=== PATIENT | male | born 2000 | race Hispanic/Latino ===

== ENCOUNTER 2023-11-27 09:46 | Emergency (ER) | payer OTHER, BC ==
[~2023-11-27] VITALS: Ht 180.3 cm; Wt 85.7 kg
[2023-11-27] MEDS ORDERED: IBUP-2077 PO (11:26)
[2023-11-27] MEDS ORDERED: CYCL-309 PO (11:26)
[2023-11-27 12:12] VITALS: BP 130/86; PULSE 70; RESP 14; O2SAT 100
[2023-11-27] MEDS: CYCLOBENZAPRINE HCL 10 MG TABLET PO ONE (12:12)
[2023-11-27] MEDS: ACETAMINOPHEN 500 MG TABLET PO ONE (12:13)
== END 2023-11-27 12:36 | disposition home or self-care (01) ==
LOC: EDH 09:46
DX: S16.1XXA Strain of muscle, fascia and tendon at neck level, initial encounter (principal); S05.11XA Contusion of eyeball and orbital tissues, right eye, initial encounter; V89.2XXA Person injured in unspecified motor-vehicle accident, traffic, initial encounter; Y93.89 Activity, other specified; Y92.89 Other specified places as the place of occurrence of the external cause; Y99.8 Other external cause status
CPT/HCPCS: 70450; 72125

== ENCOUNTER 2025-10-13 20:04 | Emergency (ER) | payer BC, OTHER ==
[~2025-10-13] VITALS: Ht 182.9 cm; Wt 86.2 kg
[~2025-10-13 20:04] MED LIST: CYCL-309 PO; IBUP-2077 PO
--- NOTE | 2025-10-13 20:46 | NUR ---
called in ER lobby. no answer
--- NOTE | 2025-10-13 21:31 | ERN ---
General Chief Complaint: Knee Injury/Swelling Stated Complaint: C/O PAIN TO RIGHT KNEE AFTER FALL Time Seen by MD: 20:13 History of Present Illness Initial Comments 25-year-old male here for evaluation of right knee pain status post fall. Patient states that his dog ran up behind him and hit him from the back making him twist his knee. No pain medications taken prior to arrival. No history of injury to the knee in the past. Allergies: Coded Allergies: No Known Drug Allergies (Unverified Allergy, Unknown, 11/27/23) Home Meds Active Scripts Cyclobenzaprine HCl (Cyclobenzaprine HCl) 10 Mg Tablet, 10 MG PO TID, #30 TAB Prov:JUDY GALE [employer] 11/27/23 Ibuprofen (Ibuprofen 800 mg Tab) 800 Mg Tab, 800 MG PO Q8H PRN for fever or pain, #30 TAB 0 Refills Prov:BALJINDERJUDY Hicks [employer] WORK[employer] 11/27/23 Past Medical History Past Medical History: No Pertinent History Past Surgical History: None Musculoskeletal: (+) joint pain, (+) joint swelling Review of Systems: was completed, & the rest were negative. Physical Exam Physical Exam Dictation GENERAL APPEARANCE NAD, activity normal for age, well developed/ well nourished, no cyanosis, pallor, or diaphoresis. EYES lids/conjunctiva normal. EARS/NOSE/THROAT Mucous membranes moist, nares normal, lips/teeth normal uvula midline without oral pharyngeal erythema, exudate or swelling TMs normal bilaterally. No lymphangitis/lymphedema. HEAD/NECK normocephalic atraumatic, no facial trauma, neck is supple. RESPIRATORY respiratory effort normal, speaks in full sentences, no tripod position, no accessory muscle use. Lungs clear to auscultation without rhonchi, wheezes, rales CARDIAC Regular rate and rhythm, no edema. ABDOMINAL Soft, ND/NT. No evidence of fluid wave. No pulsatile masses on exam, rebound tenderness, [place] sign or pain over Mcburney's point. MUSCLES/EXTREMITIES . Test. Negative anterior drawer test SKIN Warm, pink and dry. No rashes, dermatoses, petechiae or lesions. NEUROLOGICAL Speech is clear and appropriate. Normal level of consciousness. Gait and coordination are normal. 5/5 strength in all extremities. PSYCH Normal mood and affect. Judgement/competence is appropriate MDM 25-year-old male here for evaluation of right knee pain status post fall. Exam consistent with a likely ligamentous injury however negative for anterior drawer posterior drawer test. More than likely has an MCL strain. We will discharge the patient home on meloxicam PRN. Advised to follow up with the PCP for likely physical therapy and/or MRI referral. Patient well-appearing no acute distress vital signs stable. Mild antalgic gait. I reviewed the x-ray myself. No acute fracture. Reviewed x-ray with the patient ED Course Orders Procedure Category Date Status Time Knee 3vws Rt RAD 10/13/25 Taken 20:14 Ketorolac PHA 10/13/25 Complete Tromethamine 15mg/Ml 21:00 Methocarbamol PHA 10/13/25 Complete (Methocarbamol) 21:00 Current Medications Medications (Trade) Dose Ordered Sig/Abner Route PRN Reason Start Time Stop Time Status Last Admin Dose Admin Ketorolac Tromethamine (toRADol) 15 mg ONCE ONCE IM 10/13/25 21:00 10/13/25 21:01 DC 10/13/25 21:37 Methocarbamol (methoCARBamol) 500 mg ONCE ONCE PO 10/13/25 21:00 10/13/25 21:01 DC 10/13/25 21:37 Vital Signs Date Time Temp Pulse Resp B/P (MAP) Pulse Ox O2 Delivery O2 Flow Rate FiO2 10/13/25 21:37 97.9 80 20 120/71 100 Room Air* 0 21 10/13/25 20:06 97.7 80 20 120/71 100 Room Air DX & DISP Disposition: Discharge Departure Impression: Primary Impression: Right knee sprain Condition: Stable Scripts Meloxicam (Meloxicam) 15 Mg Tablet 1 TAB PO DAILY for 7 Days, #7 TAB 0 Refills Prov: WILLOW VILLA MD 10/13/25 Referrals: CYNTHIA BUSTILLOS MD (PCP) WILLOW VILLA MD Oct 13, 2025 21:31
[2025-10-13 21:37] VITALS: BP 120/71; PULSE 80; RESP 20; TEMP 97.9; O2SAT 100
[2025-10-13] MEDS ORDERED: MELO-108 PO (21:40)
--- NOTE | 2025-10-13 22:04 | HMCIMG ---
EXAM: CR Right Knee, 3 views CLINICAL HISTORY: Pain. Fall. COMPARISON: None provided. FINDINGS: No acute fracture or aggressive appearing osseous lesion. Joint spaces are within normal limits. There is no joint effusion appreciated. The soft tissues are unremarkable. IMPRESSION: No acute bony abnormality is evident. /[place]
== END 2025-10-13 21:55 | disposition home or self-care (01) ==
LOC: EDH 20:04
DX: S83.91XA Sprain of unspecified site of right knee, initial encounter (principal); X50.1XXA Overexertion from prolonged static or awkward postures, initial encounter; Y93.89 Activity, other specified; Y92.89 Other specified places as the place of occurrence of the external cause; Y99.8 Other external cause status
CPT/HCPCS: 99283; 73562; 96372; J1885